=== PATIENT | female | born 1935 | race Asian ===

== ENCOUNTER 2019-01-21 16:18 | Emergency (ER) | payer OTHER ==
[~2019-01-21] VITALS: Ht 152.4 cm; Wt 61.5 kg
[2019-01-21 17:01] VITALS: BP 149/76
== END 2019-01-21 17:02 | disposition home or self-care (01) ==
LOC: ER 16:18
DX: S82.832A Other fracture of upper and lower end of left fibula, initial encounter for closed fracture (principal); E78.5 Hyperlipidemia, unspecified; I10 Essential (primary) hypertension; I48.91 Unspecified atrial fibrillation; M81.0 Age-related osteoporosis without current pathological fracture; W18.39XA Other fall on same level, initial encounter; Y92.89 Other specified places as the place of occurrence of the external cause; Y93.89 Activity, other specified; Y99.8 Other external cause status